=== PATIENT | male | born 1945 | race Caucasian/White ===

== ENCOUNTER 2021-08-08 13:13 | Observation (INO) | payer MEDICARE, OTHER, SELFPAY ==
[2021-08-08] VITALS (8 sets, daily range): BP systolic 103–139; BP diastolic 72–81; PULSE 90–105; RESP 18–22; TEMP 36.6–37.1; O2SAT 94–100
--- NOTE | ~2021-08-08 | XR_ITS ---
EXAMINATION: XR chest 1V portable DATE: 08/08/2021 14:14 INDICATION: COVID positive. Hypoxia. TECHNIQUE: frontal view of the chest was obtained. COMPARISON: Chest radiograph dated 01/27/2019 FINDINGS: Hyperexpansion of lungs with mild flattening of the diaphragm and regions of increased lucency and ar chitectural distortion in the mid and upper lung zones consistent with emphysema. Again seen are coar se reticular opacities in the bilateral lower lung zones which are significantly decreased since the prior study which could represent mild pulmonary edema, atelectasis or pneumonia. Blunting at the ashlee ateral costophrenic angles consistent with tiny bilateral pleural effusions. No pneumothorax. The car diomediastinal silhouette is normal. IMPRESSION: 1. Mild coarse reticular opacities at the bilateral lung bases, decreased since the prior study which could represent pulmonary edema, atelectasis or pneumonia superimposed over emphysema. 2. Tiny bilateral pleural effusions. Reviewed, dictated and finalized at location A. IMPRESSION: 1. Mild coarse reticular opacities at the bilateral lung bases, decreased since the prior study which could represent pulmonary edema, atelectasis or pneumoni a superimposed over emphysema. 2. Tiny bilateral pleural effusions.
--- NOTE | 2021-08-08 13:43 | ECG_ITS ---
Measurements Intervals [place] Rate: 142 P: UT: 0 QRS: 32 QRSD: 108 T: 61 QT: 260 QTc: 400 Interpretive Statements ATRIAL FLUTTER/TACHYCARDIA WITH RAPID VENTRICULAR RESPONSE CANNOT RULE OUT SEPTAL INFARCT, AGE INDETERMINATE ABNORMAL ECG Electronically Signed On 08-08-2021 14:01:15 CDT by Manuel Rose D.O.
--- NOTE | 2021-08-08 13:45 | PC.NURSE ---
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 PT DENIES CP
[2021-08-08 14:13] LABS: Eosinophils Percent Auto 0.2 % (0-4.4); Hematocrit 40.5 % (42.0-52.0); Hemoglobin 13.3 g/dL (14.0-18.0); Immature Granulocyte Absolute 0.01 K/mm3 (0.00-0.031); Immature Granulocyte Percent A 0.2 % (0-0.5); Immature Platelet Fraction Pct 2.5 % (0.9-11.2); Lymphocytes Absolute Auto 0.86 K/mm3 (0.9-3.2); Lymphocytes Percent Auto 16.8 % (18.3-44.2); Mean Corpuscular HGB Conc 32.8 g/dl (32-36); Mean Corpuscular Volume 94.4 fl (80-100); Mean Platelet Volume 9.5 fl (7.4-10.4); Monocytes Absolute Auto 0.3 K/mm3 (0.1-0.6); Monocytes Percent Auto 6.1 % (2.6-8.5); Neutrophils Absolute Auto 3.9 K/mm3 (1.3-6.7); Neutrophils Percent Auto 76.7 % (45.5-73.1); Platelet Count Result 129 k/mm3 (150-375); Red Blood Count 4.29 M/mm3 (4.6-6.20); Red Cell Distribution Width 13.2 % (11.5-14.5); White Blood Count 5.1 K/mm3 (4.5-10.0)
[2021-08-08 14:25] LABS: Anion Gap 9 mmol/L (8-16); Blood Urea Nitrogen 31 mg/dL (9-20); Calcium 9.3 mg/dL (8.4-10.2); Carbon Dioxide 26 mmol/L (22-30); Chloride 102 mmol/L (98-107); Estimated CRCL calculation 29 ml/min; Estimated Glomerular Filt Rate 29; Glucose 232 mg/dL (65-110); INR 1.1; Potassium 4.8 mmol/L (3.4-5.0); Prothrombin Time 13.6 Seconds (11.1-14.7); Sodium 137 mmol/L (137-145)
[2021-08-08 14:26] LABS: Partial Thromboplastin Time 42.9 SECONDS (22.3-36.8)
[2021-08-08 14:36] LABS: Troponin I < 0.012 ng/mL (0.000-0.034)
--- NOTE | 2021-08-08 15:26 | ED.GENADULT ---
HPI - General Adult General Chief complaint: Upper Respiratory Infection Stated complaint: COVID POSITIVE HOME TEST/LOW SPO2 Time Seen by Provider: 08/08/21 14:08 Source: RN notes reviewed History of Present Illness HPI narrative: Patient presents emergency department from home for possible hypoxia. Patient states he has been feeling tired and fatigued for the past 4 to 5 days and took a home Covid test yesterday that was positive states he has been vaccinated patient states that today he was watching his pulse ox and he was noted readings in the 80s and came in for further evaluation upon initial presentation the emergency department the patient was noted to have a heart rate up into the 140s that is improved in the room patient denies any fevers or chills, chest pain shortness of breath or any other symptoms he states he does have a history of paroxysmal atrial fibrillation for which she is seen by cardiology at [facility] he was recently started on Eliquis but is on no rate control medication Related Data Allergies Allergy/AdvReac Type Severity Reaction Status Date / Time iodine Allergy Unknown Verified 02/05/18 15:21 shellfish derived Allergy Unknown Verified 07/07/19 14:12 Tetanus Vaccines and Toxoid Allergy Unknown Verified 02/05/18 15:21 SHELLFISH Allergy Severe anaphylaxis Uncoded 01/27/19 20:36 Review of Systems Review of Systems: Gen.: Denies fevers or chills reports positive COVID-19 test Eyes: Denies eye pain or visual change ENT: Denies congestion Respiratory: Reports low home O2 sats CV: Denies chest pain or palpitations GI: Denies abdominal pain nausea, emesis or diarrhea Musculoskeletal: Denies back pain or muscle pain Neuro: Denies numbness, tingling, weakness or focal weakness Skin: Denies rash Except as documented, all other systems reviewed and negative [facility] Past Medical History Medical History (Updated 08/08/21 @ 16:26 by Manas Vega DO) Paroxysmal atrial fibrillation Surgical History Surgical History (Updated 08/08/21 @ 16:25 by Manas Vega DO) Liver transplant recipient Social History Social History Smoking status: Former smoker Second hand tobacco smoke exposure: No Smoking end date: 11/23/77 Alcohol intake: never Exam Narrative: APPEARANCE: No acute distress, nontoxic, resting in bed EYES: EOMI HEENT: Normocephalic, atraumatic, OMM RESPIRATORY: No respiratory distress Clear to auscultation bilaterally with no rhonchi wheezing or rales. CARDIOVASCULAR: Regular rate and rhythm without murmurs rubs or gallops. ABDOMINAL: Soft, nontender, nondistended, no rebound or guarding MUSCULOSKELETAl: Moves all extremities. No clubbing, cyanosis or edema. NEURO: Awake and alert. Following commands, speech normal, no focal deficits SKIN:: Warm, dry. No rashes lesions or abrasions PSYCHIATRIC: Normal affect/mood, Course Course Emergency Course: Old records When patient does exert himself such as using the restroom he has episodes of proximal atrial fibrillation I was in the room as the patient was try to get back into bed after using the restroom this resolved after short amount of time I do believe that patient's COVID-19 is exasperating his episodes of proximal atrial fibrillation Called and discussed with Dorinda for Dr. Wang presentation work-up at this time recommends patient be started metoprolol 25 mg twice a day Discussed with SMILEY Dunne for Dr. Szymanski presentation work-up agrees with mission at this time Discussed with patient and family results of workup and diagnosis. Discussed need for admission. Patient and family understand and agree to current treatment plan Vital Signs Vital signs: Vital Signs Temperature 98 F 08/08/21 13:35 Blood Pressure 139/74 08/08/21 13:35 Pulse Oximetry 94 08/08/21 13:35 Temperature 98 F 08/08/21 13:35 Pulse Rate 105 H 08/08/21 16:26 Respiratory Rate
[2021-08-08 15:38] LABS: D Dimer 1.09 ug/mL (<0.48)
[2021-08-08 15:54] LABS: CRP 6.2 mg/dL (<1.0); Lactate Dehydrogenase 465 U/L (313-618)
[2021-08-08] MEDS: METOPROLOL TARTRATE 25 MG TABLET PO (16:25)
[2021-08-08 16:31] LABS: NT Pro B Type Natriuretic Pept 646 pg/mL (5-100)
[2021-08-08 17:57] LABS: Troponin I < 0.012 ng/mL (0.000-0.034)
--- NOTE | 2021-08-08 21:30 | PM.IMHP ---
H&P: HPI History of Present Illness Date/Time: 08/08/21 21:30 Chief Complaint: Shortness of breath Narrative: This is a 75-year-old male with past medical history significant for liver transplant 10 years ago currently on tacrolimus, paroxysmal atrial fibrillation anticoagulated. Patient presented today to the emergency room after he tested positive for COVID with day home to COVID kit he has not been feeling well for the last 4 or 5 days and yesterday was the worst he was feeling very fatigued tired had cough shortness of breath and his pulse ox at home was showing 80%. Patient had COVID vaccine. He he has some loss of taste and smell has had poor appetite, chills and fevers, generalized malaise, body aches and pains, no nausea no vomiting no diarrhea. Preliminary workup was significant for chest x-ray with infiltrates. Review of Systems Review of Systems: Tested positive for COVID with a home kit shortness of breath cough loss of sense of taste and smell body aches and pains Constitutional: Constitutional: Reports chills, Reports fatigue, Reports fever(s), Reports lethargy, Reports malaise, Reports poor appetite and Reports weakness Eyes: Eyes: Denies change in vision ENT: Denies dysphagia, Denies nasal congestion, Denies nasal discharge, Denies nasal obstruction and Denies odynophagia Cardiovascular: Cardiovascular: Denies chest pain, Denies irregular heart rhythm, Denies leg edema, Denies lightheadedness, Denies radiating jaw, neck or arm pain, Denies palpitations and Denies orthopnea Respiratory: Respiratory: Reports cough, Denies excessive phlegm production and Reports dyspnea Gastrointestinal: Gastrointestinal: Denies abdominal pain, Denies diarrhea, Denies nausea and Denies vomiting Genitourinary: Genitourinary: Reports no additional male genitourinary complaints Musculoskeletal: Musculoskeletal: Reports no additional musculoskeletal complaints Integumentary/Breasts: Skin/Breast: Reports system reviewed and no additional complaints, except as docu Neurologic: Reports system reviewed and no additional complaints, except as documented Psychiatric: Psychiatric: Reports no additional psychiatric complaints Endocrine: Endocrine: Reports no additional endocrine complaints Hematologic/Lymphatic: Hematologic/Lymphatic: Reports no additional hematologic/lymphatic complaints Allergic/Immunologic: Allergic/Immunologic: Reports no additional allergic/immunologic complaints [facility] Past Medical History Medical History (Updated 08/09/21 @ 01:38 by Desmond Vega MD) Paroxysmal atrial fibrillation Surgical History Surgical History (Updated 08/08/21 @ 16:25 by Manas Vega DO) Liver transplant recipient Social History Social History Smoking status: Former smoker Tobacco type: cigarettes Second hand tobacco smoke exposure: No Smoking end date: 11/23/77 Alcohol intake: never Substance use: never Spiritual care concerns: No Meds Home Medications and Allergies Home Medications Medication Instructions Recorded Confirmed Type Adults Multivitamin See Rx Instructions .ROUTE .COMPLEX 08/08/21 08/08/21 History albuterol sulfate 2 puff INHALATION PRN PRN 08/08/21 08/08/21 History apixaban [Eliquis] 2.5 mg PO BID 08/08/21 08/08/21 History calcium carbonate 600 mg PO BID 08/08/21 08/08/21 History cholecalciferol (vitamin D3) 1,000 unit PO BID 08/08/21 08/08/21 History [Vitamin D3] montelukast 10 mg PO DAILY 08/08/21 08/08/21 History tacrolimus 3 mg PO BID 08/08/21 08/08/21 History Allergies Allergy/AdvReac Type Severity Reaction Status Date / Time iodine Allergy Unknown Verified 02/05/18 15:21 shellfish derived Allergy Unknown Verified 07/07/19 14:12 Tetanus Vaccines and Toxoid Allergy Unknown Verified 02/05/18 15:21 SHELLFISH Allergy Severe anaphylaxis Uncoded 01/27/19 20:36 Vital Signs Vital Signs - 24 hr 08/08/21 13:35 08/08
[2021-08-08 22:02] LABS: Troponin I 0.013 ng/mL (0.000-0.034)
--- NOTE | 2021-08-08 23:00 | ADMGEN ---
This patient, Francois Goetz, was admitted to IMU Room 212-01 on 08/08/21 at 1945. Patient/family oriented to hospital policies and general routines including ID bracelet, bed and alarms, visiting hours, pain management, procedures, bathroom and other care routines, personal items, smoking policy, room service/diet, and visiting hours. Information on how to activate the Rapid Response Team has been discussed. Patient/Family are encouraged to report perceived risks to care and to ask questions if they do not understand what they are told or what they should do.
[2021-08-09] VITALS (13 sets, daily range): BP systolic 99–106; BP diastolic 51–70; PULSE 58–112; RESP 18–20; TEMP 36.4–37.1; O2SAT 95–98
--- NOTE | 2021-08-09 | ECHO_ITS ---
Patient Info Name: Francois Goetz Age: 75 years : 1945 Gender: Male Ht: 74 in Wt: 166 lbs BSA: 1.98 m2 HR: 84 bpm BP: 99 / 51 mmHg Heart Rhythm: Atrial Flutter Exam Date: 08/09/2021 1:51 PM Exam Location: [facility] Patient Status: Outpatient Admit Date: 08/08/2021 Staff Ordering Physician: Dorinda Henry Manager Benefit: Santiago Goetz, FLOR, RT Attending Provider: Earnestine Szymanski MD Referring Physician: Elaine FOX; Exam Type: CA echo doppler color flow Study Info Indications I48.1 - Persistent atrial fibrillation Complete two-dimensional, color flow and Doppler transthoracic echocardiogram is performed. Strain analysis performed. Summary 1. Complete two-dimensional, color flow and Doppler transthoracic echocardiogram is performed. 2. Left ventricular chamber dimension is mildly enlarged. 3. Left ventricular systolic function is mildly reduced, estimated at 45-50%. 4. There is mildly increased left ventricular wall thickness. 5. The left ventricular diastolic function is indeterminate. 6. Left atrial chamber dimension is moderately enlarged. 7. There is mild aortic valve regurgitation. 8. The mitral valve annulus is moderately calcified. 9. There is mild mitral valve regurgitation. 10. There is mild tricuspid valve regurgitation. 11. Mild pulmonary hypertension, estimated pulmonary arterial systolic pressure is 44 mmHg. 12. There is mild pulmonic regurgitation. 13. Strain analysis performed. Left Ventricle Left ventricular chamber dimension is mildly enlarged. Left ventricular systolic function is mildly reduced, estimated at 45-50%. There is mildly increased left ventricular wall thickness. The left ventricular diastolic function is indeterminate. Right Ventricle Right ventricular chamber dimension is normal. Right ventricular systolic function is normal. Left Atria Left atrial chamber dimension is moderately enlarged. Right Atria Right atrial chamber dimension is normal. Atrial Septum Intact interatrial septum visualized by color flow imaging. Aortic Valve The aortic valve is trileaflet. There is mild aortic valve sclerosis. There is no aortic valve stenosis. There is mild aortic valve regurgitation. Pulmonic Valve The pulmonic valve is normal. There is no pulmonic valve stenosis. There is mild pulmonic regurgitation. Mitral Valve There is no mitral valve stenosis. There is mild mitral valve regurgitation. The mitral valve annulus is moderately calcified. Tricuspid Valve The tricuspid valve leaflets are normal. There is no significant tricuspid valve stenosis. There is mild tricuspid valve regurgitation. Mild pulmonary hypertension, estimated pulmonary arterial systolic pressure is 44 mmHg. Pericardium/Pleural The pericardium appears normal. There is trivial pericardial effusion. Inferior Vena Cava Dilated inferior vena cava with >50% collapse upon inspiration consistent with elevated right atrial pressure, 10 mmHg. Aorta The aortic root size at the sinus of Valsalva is normal. The prox ascending aorta size is normal. Left Ventricular Outflow Tract Name Value Normal LVOT 2D LVOT Diameter 2.4 cm
[2021-08-09] MEDS: MELATONIN 5 MG TABLET PO (00:45)
--- NOTE | 2021-08-09 06:39 | ECG_ITS ---
Measurements Intervals [place] Rate: 90 P: DC: 0 QRS: 30 QRSD: 93 T: 0 QT: 330 QTc: 404 Interpretive Statements ATRIAL FLUTTER/TACHYCARDIA LOW QRS VOLTAGE IN LIMB LEADS BASELINE ARTIFACT- II, III, AVR, AVL, AVF ABNORMAL ECG Electronically Signed On 08-09-2021 12:16:23 CDT by Manuel Rose D.O.
[2021-08-09] MEDS: MONTELUKAST SODIUM 10 MG TABLET PO (09:01)
[2021-08-09] MEDS: MULTIVITAMINS /C LUTEIN (CENTRUM SILVER) TABLET *BKC 1 TAB PO (09:01)
[2021-08-09] MEDS: APIXABAN 2.5 MG TABLET PO (09:01)
[2021-08-09] MEDS: CALCIUM CARBONATE (OSCAL) 500 MG TABLET PO (09:02)
[2021-08-09] MEDS: CHOLECALCIFEROL 1,000 UNITS TABLET 1000 UNITS PO (09:02)
[2021-08-09] MEDS: METOPROLOL TARTRATE 25 MG TABLET PO (09:02)
--- NOTE | 2021-08-09 10:55 | PM.CNCAR ---
Assessment and Plan Assessment and plan (1) Paroxysmal atrial fibrillation: Code(s): I48.0 - Paroxysmal atrial fibrillation Status: Acute Assessment and Plan: Longstanding history of paroxysmal atrial fibrillation. Had a cardioversion back in 2009. Follows with Dr. Boyd at [facility]. Is on anticoagulation 2.5 mg p.o. b.i.d.. Uncertain as to why this dose was chosen. ? Related to his liver transplant possibly. He also does have renal dysfunction. Regardless will continue this dose of anticoagulation and have him follow-up with his primary anode builder at his normally scheduled outpatient appointment in early August. Will check a 2D echocardiogram Doppler and initiate low-dose metoprolol therapy 25 mg p.o. b.i.d.. Will check a TSH, T4 level and magnesium level. From a cardiac perspective, could likely be discharged home later today (2) Chronic renal insufficiency: Code(s): N18.9 - Chronic kidney disease, unspecified Status: Acute (3) Pneumonia due to COVID-19 virus: Code(s): U07.1 - COVID-19; J12.82 - Pneumonia due to coronavirus disease 2018 Status: Acute Assessment and Plan: Per hospitalist (4) Liver transplant recipient: Code(s): Z94.4 - Liver transplant status Status: Acute Assessment and Plan: Followed at [place] (5) COPD (chronic obstructive pulmonary disease): Code(s): J44.9 - Chronic obstructive pulmonary disease, unspecified Status: Acute Assessment and Plan: Secondary to alpha-1 antitrypsin deficiency History of Present Illness History of Present Illness Consult date/time: 08/09/21 10:55 Requesting physician: Manas Vega DO Consult reason: atrial fibrillation Reason For Visit: covid 19,paroxysmal atrial fibrillation with rvr Narrative: Date of service 08/09/2021 Reason for consultation: Atrial fibrillation/flutter and COVID infection Requesting provider: Dr. Vega History patient is a 75-year-old male who has a history of paroxysmal atrial fibrillation. He has undergone cardioversion in the past. He follows with Dr. Boyd at [facility]. He has had a small pericardial effusion in the past as well as hypertension, COPD, liver transplantation. He has alpha-1 antitrypsin deficiency causing the COPD and cirrhosis. He started feeling poorly about 4-5 days ago. He did a home COVID test which was abnormal. He was being diligent about checking his oxygen levels at home. He was feeling tired fatigued and a bit short of breath and he noticed that his oxygen levels were dropping into the 80s. His heart rate though remained in the normal range he stated. He decided come Hospital further evaluation and was found to be in atrial flutter with rapid ventricular response. Chest x-ray did show evidence of COVID pneumonia. He has been admitted for further workup and evaluation. He has been started on metoprolol which has nicely controlled his heart rate. He is not on any supplemental oxygen at this point in feels okay and wants to go home. He did see his primary anode builder a couple of weeks ago who noted that he was back in atrial fibrillation. He was started on Eliquis at 2.5 mg p.o. b.i.d.. This dosage was confirmed by personal review of his bottle/prescription. He has follow-up with Dr. Boyd in early August. Review of Systems Review of Systems: All systems reviewed & are unremarkable except as noted in HPI and below Constitutional: Constitutional: Reports fatigue, Reports lethargy and Reports weakness Eyes: Eyes: Denies blurry vision ENT: Reports Normal hearing present Cardiovascular: Cardiovascular: Denies chest pain and Denies palpitations Respiratory: Respiratory: Reports dyspnea Gastrointestinal: Gastrointestinal: Denies abdominal pain Genitourinary: Genitourinary: Denies dysuria and Denies urinary frequency Musculoskeletal: Musculoskeletal: Denies back pain and Denies neck pain Integume
--- NOTE | 2021-08-09 12:05 | PHAR ---
PT'S HOME MED TACROMILUS 1 MG CAPSULE VERIFIED BY PHARMACY
[2021-08-09 12:49] LABS: Magnesium 1.7 mg/dL (1.6-2.3)
[2021-08-09 13:20] LABS: Thyroid Stimulating Hormone 0.986 uIU/mL (0.465-4.680)
--- NOTE | 2021-08-09 15:00 | PM.DS ---
DS: Admitting Diagnosis Discharge Date 08/09/2021 Admitting Diagnosis Shortness of breath DS: Discharge Diagnosis Discharge Diagnosis (1) Pneumonia due to COVID-19 virus: Code(s): U07.1 - COVID-19; J12.82 - Pneumonia due to coronavirus disease 2018 Status: Acute Assessment and Plan: Patient does not meet criteria for remdesivir at this time Started on Rocephin and Zithromax for bacterial coverage Continue to monitor Supportive care On room air (2) Chronic renal insufficiency: Code(s): N18.9 - Chronic kidney disease, unspecified Status: Acute Assessment and Plan: Patient's BUN and creatinine is at baseline Continue to monitor (3) Paroxysmal atrial fibrillation: Code(s): I48.0 - Paroxysmal atrial fibrillation Status: Acute Assessment and Plan: Rate controlled and anticoagulated (4) Liver transplant recipient: Code(s): Z94.4 - Liver transplant status Status: Acute Assessment and Plan: Continue tacrolimus Continue to monitor Follow-up in outpatient setting DS: Summary Hospital Course Reason for hospitalization: Chief Complaint: Shortness of breath Narrative: This is a 75-year-old male with past medical history significant for liver transplant 10 years ago currently on tacrolimus, paroxysmal atrial fibrillation anticoagulated. Patient presented today to the emergency room after he tested positive for COVID with day home to COVID kit he has not been feeling well for the last 4 or 5 days and yesterday was the worst he was feeling very fatigued tired had cough shortness of breath and his pulse ox at home was showing 80%. Patient had COVID vaccine. He he has some loss of taste and smell has had poor appetite, chills and fevers, generalized malaise, body aches and pains, no nausea no vomiting no diarrhea. Preliminary workup was significant for chest x-ray with infiltrates. Hospital Course: Patient does not meet criteria for remdesivir at this time Started on Rocephin and Zithromax for bacterial coverage Continue to monitor Supportive care On room air Patient remains clinically stable has a PAF seen by Cardiology continued his current dose of anticoagulation Eliquis 2.5 mg b.i.d., started the patient on low-dose of metoprolol 25 mg p.o. b.i.d. had a cardiac echo, mild reduced systolic function ejection fraction 40-50, will discharge the patient today to follow-up with his electrical experimental mechanic. Status at Discharge Functional status at discharge: independent ambulation Overall status at discharge: patient is back to baseline Time Spent with Patient Time attestation: Total time spent providing and/or coordinating discharge services: Patient was seen and examined at the time of the discharge Condition at discharge is stable Code status: Full code. Time spent preparing discharge summary, discharge medications, discussing discharge planning with family service caseworker and patient is 35 minutes. Time spent: Greater than 30 minutes DS: Data Data Completed and Pending Labs on day of discharge: Labs from last 24 hours 08/09/21 08/09/21 08/09/21 12:30 12:30 03:35 D-Dimer Magnesium 1.7 Lactate Dehydrogenase Troponin I C-Reactive Protein NT-Pro-B Natriuret Pep TSH 0.986 Free T4 Pending SARS-CoV-2 RNA (RT-PCR) Pending 08/08/21 08/08/21 08/08/21 20:29 17:02 15:12 D-Dimer Magnesium Lactate Dehydrogenase Troponin I 0.013 < 0.012 C-Reactive Protein NT-Pro-B Natriuret Pep 646 H TSH Free T4 SARS-CoV-2 RNA (RT-PCR) 08/08/21 08/08/21 15:12 15:12 D-Dimer 1.09 H Magnesium Lactate Dehydrogenase 465 Troponin I C-Reactive Protein 6.2 H NT-Pro-B Natriuret Pep TSH Free T4 SARS-CoV-2 RNA (RT-PCR) Discharge Plan Discharge Attending physician on discharge: Talon Stephenson Consulting providers: Taj Wang ; Desmond Vega V. ; Vadim Isidro Rafe M. Discharging Clinician
[2021-08-09 15:34] LABS: Free T4 Free Thyroxine 0.89 ng/mL (0.78-2.19)
[2021-08-09 19:38] LABS: SARS-CoV-2 RNA PCR Negative
== END 2021-08-09 15:48 | disposition home or self-care (01) ==
LOC: ANHED 16:26 → ANHIMU 23:25
PROVIDERS: Emergency Medicine; Internal Medicine; Nurse Practitioner; Admitting Provider Internal Medicine; Emergency Provider Emergency Medicine; PCP Family Medicine; Visit Provider Family Medicine
DX: U07.1 COVID-19 (principal); J12.82 Pneumonia due to coronavirus disease 2019; N18.9 Chronic kidney disease, unspecified; I48.0 Paroxysmal atrial fibrillation; Z79.01 Long term (current) use of anticoagulants; Z94.4 Liver transplant status; Z87.891 Personal history of nicotine dependence; R06.02 Shortness of breath
CPT/HCPCS: 36415; 71045; 80048; 83615; 83735; 83880; 84439; 84443; 84484; 85025; 85055; 85380; 85610; 85730; 86140; 87040; 93005; 93306; 96365; 96367; 99285; A9270; C9803; G0378; J0456; J0696; U0003; U0005

== ENCOUNTER 2022-12-12 17:29 | Emergency (ER) | payer MEDICARE, OTHER, SELFPAY ==
--- NOTE | ~2022-12-12 | XR_ITS ---
EXAMINATION: XR chest 2V DATE: 12/12/2022 18:40 INDICATION: Cough. TECHNIQUE: Frontal and lateral views of the chest were obtained on 3 radiographs. COMPARISON: Chest single view 08/08/2021, chest CT 09/06/2011 FINDINGS: The lungs are hyperexpanded with lucencies, consistent with emphysema. There are airspace a nd interstitial opacities in the lower lung zones. No pleural effusion or pneumothorax. The heart siz e is normal. IMPRESSION: 1. Stable diffuse lung disease, likely a combination of emphysema and chronic lung disease. Reviewed, dictated and finalized at location A. LOADER IMPRESSION: 1. Stable diffuse lung disease, likely a combination of emphysema and chronic l eugene disease.
[2022-12-12 17:53] VITALS: BP 131/78; PULSE 93; RESP 18; TEMP 37.3; O2SAT 92
--- NOTE | 2022-12-12 18:20 | ED.URI ---
HPI - URI/Sore Throat General Chief Complaint: Upper Respiratory Infection Stated Complaint: Fatigue,Shortness of Breath,Cough Time Seen by Provider: 12/12/22 18:20 Source: patient, RN notes reviewed and old records reviewed Mode of arrival: ambulatory Limitations: no limitations History of Present Illness HPI Narrative: 77-year-old male with a history of a liver transplant presents to the [facility] with 3 weeks of cough, fatigue, shortness of breath. Patient has history COPD and lung disease. Used his albuterol twice yesterday, not today. Has been using his home oxygen has not contacted his program writer, primary or transplant team since symptoms started. Reports symptoms started as a stuffy nose 3 weeks ago Related Data Home Medications Medication Instructions Recorded Confirmed albuterol sulfate 90 mcg/actuation 2 puff inhalation PRN PRN SOB 08/08/21 12/12/22 aerosol inhaler calcium carbonate 600 mg calcium 600 mg PO BID 08/08/21 12/12/22 (1,500 mg) tablet cholecalciferol (vitamin D3) 25 1,000 unit PO BID 08/08/21 12/12/22 mcg (1,000 unit) capsule (Vitamin D3) montelukast 10 mg tablet 10 mg PO DAILY 08/08/21 12/12/22 tacrolimus 1 mg capsule, 3 mg PO BID 08/08/21 12/12/22 immediate-release Allergies Allergy/AdvReac Type Severity Reaction Status Date / Time iodine Allergy Unknown Anaphylaxis Verified 12/12/22 18:32 shellfish derived Allergy Unknown Anaphylaxis Verified 12/12/22 18:32 Tetanus Vaccines and Toxoid Allergy Unknown Anaphylaxis Verified 12/12/22 18:32 SHELLFISH Allergy Severe anaphylaxis Uncoded 12/12/22 18:32 Review of Systems Review of Systems: All systems reviewed & are unremarkable except as noted in HPI and below Constitutional: Constitutional: Reports no additional constitutional complaints Eyes: Eyes: Reports no additional eye complaints ENT: Reports as per HPI and Reports nasal congestion Cardiovascular: Cardiovascular: Reports no additional cardiovascular complaints, Denies chest pain and Denies dyspnea Respiratory: Respiratory: Reports as per HPI, Denies chest congestion, Reports cough, Reports dyspnea and Reports wheezing Gastrointestinal: Gastrointestinal: Reports no additional gastrointestinal complaints, Denies abdominal pain, Denies nausea and Denies vomiting Musculoskeletal: Musculoskeletal: Reports no additional musculoskeletal complaints Integumentary/Breasts: Skin/Breast: Reports system reviewed and no additional complaints, except as docu Neurologic: Reports system reviewed and no additional complaints, except as documented Psychiatric: Psychiatric: Reports no additional psychiatric complaints Allergic/Immunologic: Allergic/Immunologic: Reports no additional allergic/immunologic complaints PMFSH Past Medical History Medical History Paroxysmal atrial fibrillation Surgical History Surgical History Liver transplant recipient Family History Family History Father Heart disease Grandparent Colon cancer Social History Social History Smoking status: Former smoker Tobacco type: cigarettes Second hand tobacco smoke exposure: No Smoking end date: 11/23/77 Alcohol intake: never Substance use: never Spiritual care concerns: No Comments At the time of my signature, I reviewed and agree with the nursing past medical, surgical, social, and family history. There is no relevant family history pertinent to the patient complaint. Exam Const: General: cooperative, comfortable, no acute distress, well developed, alert, ill appearing chronically and well nourished Nutritional Appearance: well nourished Orientation/consciousness: patient oriented x3 Limitations: no limitations HENMT: Head: normal to inspection Ears: hearing grossl
== END 2022-12-12 19:18 | disposition home or self-care (01) ==
PROVIDERS: Emergency Provider Nurse Practitioner; PCP Family Medicine
DX: J44.9 Chronic obstructive pulmonary disease, unspecified (principal); I48.0 Paroxysmal atrial fibrillation; Z87.891 Personal history of nicotine dependence
CPT/HCPCS: 71046; 99213; G0463